=== PATIENT | male | born 1975 | race Caucasian/White ===

== ENCOUNTER → 2019-10-19 | Outpatient (CLI) | payer OTHER ==
--- NOTE | 2019-10-19 15:35 | RAD ---
Indications: Bilateral hip pain 2 view left hip study: There is deformity of the left femoral head. There is loss of the joint space with [id number] interface and severe subchondral sclerosis and cyst formation and prominent spurring. The findings are consistent with severe degenerative osteoarthritis of the left hip. No acute fracture or or dislocation or lytic process is seen. Two-view right hip study: There is sclerosis of the superior lateral aspect of the right femoral head with mild depression of the femoral head here and subchondral lucency consistent with avascular necrosis and possible unstable osteochondral fragment. There is mild degenerative joint space narrowing and mild degenerative spurring of the right hip joint. No acute fracture or dislocation or lytic process is seen. IMPRESSION: Avascular necrosis of the right femoral head with possible unstable osteochondral fragment. Deformity of the right femoral head and mild secondary degenerative osteoarthritis of the right hip joint. There is severe degenerative osteoarthritis of the left hip joint with [id number]-[id number]-oocy interface and this may be secondary to old avascular necrosis given the deformity of the left femoral head. Electronically signed by: Rodrigue Garrison MD (10/19/2019 3:32 PM) [id number]
--- NOTE | 2019-10-19 15:35 | RAD ---
Indications: Bilateral hip pain 2 view left hip study: There is deformity of the left femoral head. There is loss of the joint space with [id number] interface and severe subchondral sclerosis and cyst formation and prominent spurring. The findings are consistent with severe degenerative osteoarthritis of the left hip. No acute fracture or or dislocation or lytic process is seen. Two-view right hip study: There is sclerosis of the superior lateral aspect of the right femoral head with mild depression of the femoral head here and subchondral lucency consistent with avascular necrosis and possible unstable osteochondral fragment. There is mild degenerative joint space narrowing and mild degenerative spurring of the right hip joint. No acute fracture or dislocation or lytic process is seen. IMPRESSION: Avascular necrosis of the right femoral head with possible unstable osteochondral fragment. Deformity of the right femoral head and mild secondary degenerative osteoarthritis of the right hip joint. There is severe degenerative osteoarthritis of the left hip joint with [id number]-dpap interface and this may be secondary to old avascular necrosis given the deformity of the left femoral head. Electronically signed by: Rodrigue Garrison MD (10/19/2019 3:32 PM) [id number]
== END ==
LOC: RAD 09:03
PROVIDERS: ATTEND Surgery
DX: M16.0 Bilateral primary osteoarthritis of hip (principal); M87.851 Other osteonecrosis, right femur; M77.8 Other enthesopathies, not elsewhere classified
CPT/HCPCS: 73502